=== PATIENT | female | born 1930 | race Asian ===

== ENCOUNTER → 2018-08-07 | Outpatient (CLI) | payer MEDICARE, OTHER ==
[~2018-08-07] MED LIST: ACET-48 PO; LORA10TA7 PO; LORA1TAB3 PO; MULT1TAB PO; NAPR-1024 PO; SIMV40TA5 PO; VALS80TA2 PO; [UNRECOGNIZED DRUG - CODE] PO
== END | disposition home or self-care (01) ==
LOC: RADMN 08:13
PROVIDERS: ATTEND Internal Medicine
DX: I67.82 Cerebral ischemia (principal); J32.8 Other chronic sinusitis
CPT/HCPCS: 70544; 70551